=== PATIENT | male | born 1950 | race Caucasian/White ===

== ENCOUNTER 2023-04-21 13:17 | Inpatient (IN) | payer OTHER, MEDICAID ==
[~2023-04-21] VITALS: Ht 170.2 cm; Wt 83.5 kg
[2023-04-21 13:33] VITALS: BP_SYST 130
[2023-04-21 13:50] LABS: EOSINOPHILS # (AUTO) 0.1 K/uL (0.0-0.4); EOSINOPHILS % (AUTO) 3.2 % (0.0-4.0); HEMATOCRIT 48.8 % (36-54); LYMPHOCYTES % (AUTO) 25.5 % (20.5-51.5); MEAN CORPUSCULAR HEMOGLOBIN 29 pg (27-31); MEAN CORPUSCULAR HGB CONC 33 % (32-36); MEAN CORPUSCULAR VOLUME 88 fL (79.0-98.0); MONOCYTES # (AUTO) 0.3 K/uL (0.0-1.0); MONOCYTES % (AUTO) 8.3 % (1.7-9.3); NEUTROPHILS # (AUTO) 2.5 K/uL (1.8-7.7); PLATELET COUNT (AUTO) 188 K/uL (130-430); RED BLOOD CELL COUNT(AUTO) 5.58 MIL/uL (4.2-6.2); RED CELL DISTRIBUTION WIDTH 13.7 % (9.0-15.0); WHITE BLOOD COUNT (AUTO) 4.1 K/uL (4.8-10.8)
[2023-04-21 13:56] LABS: ANION GAP 5 (5-15); CALCIUM 8.9 mg/dL (8.4-11.0); CHLORIDE 104 mmol/L (98-107); CREATININE 1.48 mg/dL (0.55-1.30); GLUCOSE 153 mg/dL (70-99); UREA NITROGEN, BLOOD 30 mg/dL (8-21)
[2023-04-21 14:00] LABS: PROTHROMBIN TIME 10.5 SECS (9.5-12.5)
[2023-04-21 14:03] LABS: ALANINE AMINOTRANSFERASE 11 U/L (12-78); ALBUMIN 3.7 g/dL (3.4-4.8); ASPARTATE AMINOTRANSFERASE 14 U/L (10-37); TOTAL BILIRUBIN 0.6 mg/dL (0.0-1.0)
[2023-04-21] MEDS ORDERED: ASPIRIN 325 MG TABLET (ECOTRIN) PO ONE (14:30)
[2023-04-21] MEDS ORDERED: MORPHINE 2 MG/ML INJ. SYRINGE IVP ONE (14:30)
[2023-04-21] MEDS ORDERED: CLOP75TA32 PO (15:03)
[2023-04-21] MEDS ORDERED: MECL-261 (15:03)
[2023-04-21] MEDS ORDERED: PHEDM120 PO (15:03)
[2023-04-21] MEDS ORDERED: ICOS1CAP PO (15:03)
[2023-04-21] MEDS ORDERED: AMLO5TAB4 PO (15:03)
[2023-04-21] MEDS ORDERED: BRI.2% EACH EYE (15:03)
[2023-04-21] MEDS ORDERED: KETOROLAC TROMETHAMINE 15 MG VIAL ONE (15:11)
[2023-04-21] MEDS ORDERED: KETOROLAC TROMETHAMINE 15 MG VIAL IVP ONE (15:15)
[2023-04-21] MEDS ORDERED: OLME1TAB92 PO (15:22)
[2023-04-21] MEDS ORDERED: LIP40 PO (15:22)
[2023-04-21] MEDS ORDERED: LEVO75TA7 PO (15:22)
[2023-04-21] MEDS ORDERED: MEMA5TAB PO (15:22)
[2023-04-21 16:27] VITALS: BP_SYST 138
[2023-04-21 17:12] VITALS: BP_SYST 138
[2023-04-21] MEDS ORDERED: ACETAMINOPHEN 325 MG TABLET PO PRN (17:45)
[2023-04-21] MEDS ORDERED: POTASSIUM CHLORIDE 20 MEQ TAB.PRT.SR PO ONE (17:45)
[2023-04-21 20:00] VITALS: BP_SYST 135
[2023-04-21] MEDS ORDERED: PROMETHAZINE-DM 6.25 MG-15 MG/5 ML UDC PO PRN (22:15)
[2023-04-21] MEDS ORDERED: ONDANSETRON HCL 4 MG/2 ML VIAL IVP PRN (22:30)
[2023-04-21] MEDS ORDERED: HYDROcodone/ACETAMIN 10-325 MG TAB PO PRN (22:30)
[2023-04-21] MEDS ORDERED: LORazepam 2 MG/ML VIAL IVP PRN (22:30)
[2023-04-21] MEDS ORDERED: NALOXONE HCL 0.4 MG/ML AMP (NARCAN) IVP PRN ×2 (22:30)
[2023-04-21] MEDS ORDERED: HYDROcodone/ACETAMIN 5-325 MG TAB (NORCO/ VICODIN) PO PRN (22:30)
[2023-04-22 00:08] VITALS: BP_SYST 125
[2023-04-22] MEDS ORDERED: NORMAL SALINE 5 ML DISP.SYRIN IVF SCH (06:00)
[2023-04-22] MEDS: NORMAL SALINE 5 ML DISP.SYRIN IVF SCH ×2 (06:15→14:17)
[2023-04-22 06:45] LABS: ANION GAP 6 (5-15); CALCIUM 9.1 mg/dL (8.4-11.0); CHLORIDE 106 mmol/L (98-107); CHOLESTEROL 193 mg/dL (<200); GLUCOSE 113 mg/dL (70-99); HDL CHOLESTEROL 41 mg/dL (>45); PHOSPHORUS 3.5 mg/dL (2.7-4.5); THYROID STIMULATING HORMONE 5.39 uIu/mL (0.34-4.82); TRIGLYCERIDES 210 mg/dL (30-150); UREA NITROGEN, BLOOD 25 mg/dL (8-21)
[2023-04-22 06:48] LABS: BASOPHILS % (AUTO) 0.8 % (0.0-2.0); EOSINOPHILS # (AUTO) 0.2 K/uL (0.0-0.4); EOSINOPHILS % (AUTO) 4.8 % (0.0-4.0); HEMATOCRIT 49.2 % (36-54); HEMOGLOBIN 16.1 g/dL (14.0-18.0); LYMPHOCYTES # (AUTO) 1.1 K/uL (1.0-5.5); LYMPHOCYTES % (AUTO) 25.7 % (20.5-51.5); MEAN CORPUSCULAR HEMOGLOBIN 29 pg (27-31); MEAN CORPUSCULAR HGB CONC 33 % (32-36); MEAN CORPUSCULAR VOLUME 88 fL (79.0-98.0); MONOCYTES # (AUTO) 0.4 K/uL (0.0-1.0); MONOCYTES % (AUTO) 9.1 % (1.7-9.3); NEUTROPHILS # (AUTO) 2.6 K/uL (1.8-7.7); NEUTROPHILS % (AUTO) 59.6 % (40.0-70.0); PLATELET COUNT (AUTO) 199 K/uL (130-430); RED BLOOD CELL COUNT(AUTO) 5.61 MIL/uL (4.2-6.2); RED CELL DISTRIBUTION WIDTH 13.6 % (9.0-15.0)
[2023-04-22] MEDS ORDERED: LEVOTHYROXINE SODIUM 0.075 MG TABLET PO SCH (07:00)
[2023-04-22 08:00] VITALS: BP_SYST 147
[2023-04-22 08:09] LABS: WHITE BLOOD COUNT (AUTO) 4.3 K/uL (4.8-10.8)
[2023-04-22] MEDS ORDERED: BRIMONIDINE TARTRATE 0.2% 5 mL EYE DROPS EACH EYE SCH (09:00)
[2023-04-22] MEDS ORDERED: LOSARTAN POTASSIUM 50 MG TABLET (COZAAR) PO SCH (09:00)
[2023-04-22] MEDS ORDERED: HYDROCHLOROTHIAZIDE 25 MG TABLET (HCTZ) PO SCH (09:00)
[2023-04-22] MEDS ORDERED: CLOPIDOGREL BISULFATE 75 MG TABLET PO SCH (09:00)
[2023-04-22] MEDS ORDERED: amLODIPine BESYLATE 5 MG TABLET PO SCH (09:00)
[2023-04-22] MEDS ORDERED: MEMANTINE HCL 5 MG TABLET PO SCH (09:00)
[2023-04-22 11:47] VITALS: BP_SYST 115
[2023-04-22] MEDS ORDERED: LIDOINT TP (12:06)
[2023-04-22] MEDS ORDERED: LIP20 PO (12:06)
[2023-04-22 15:20] VITALS: BP_SYST 115
[2023-04-22 16:00] VITALS: BP_SYST 140
[2023-04-22] MEDS ORDERED: ATORVASTATIN 20 MG TABLET PO SCH ×2 (21:00)
[2023-04-22] MEDS ORDERED: ICOSAPENT ETHYL 1 GM PO SCH (21:00)
== END 2023-04-22 16:48 | disposition home or self-care (01) | DRG 313 ==
LOC: SED 13:17 → STU 14:48
PROVIDERS: ADMIT Preventive Medicine Preventive Medicine/Occupational Environmental Medicine; ATTEND Preventive Medicine Preventive Medicine/Occupational Environmental Medicine
DX: R07.89 Other chest pain (principal); M62.82 Rhabdomyolysis; N17.9 Acute kidney failure, unspecified; I10 Essential (primary) hypertension; E11.65 Type 2 diabetes mellitus with hyperglycemia; E03.9 Hypothyroidism, unspecified; D72.819 Decreased white blood cell count, unspecified; I51.7 Cardiomegaly; E78.5 Hyperlipidemia, unspecified; E87.6 Hypokalemia; I25.2 Old myocardial infarction
CPT/HCPCS: 36415; 71045; 80048; 80053; 80061; 82550; 83735; 83880; 84100; 84443; 84484; 85025; 85610-TC; 85730-TC; 93005; 93306; 96374; 96375; 99285; G0378; J1885; J2270